=== PATIENT | female | born 2000 | race Caucasian/White ===

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

== ENCOUNTER 2021-01-05 11:28 | Emergency (ER) | payer OTHER, MEDICAID ==
[~2021-01-05] VITALS: Ht 167.6 cm; Wt 70.3 kg
[~2021-01-05 11:28] MED LIST changes: +DEPO-PROVE150 MG/11 IM
[2021-01-05 11:50] LABS: URINE BILIRUBIN NEGATIVE (Negative); URINE BLOOD 1+ (Negative); URINE CLARITY CLEAR; URINE COLOR YELLOW; URINE GLUCOSE-RANDOM NEGATIVE (Negative); URINE KETONES NEGATIVE (Negative); URINE NITRITE-REFLEX NEGATIVE (Negative); URINE PROTEIN NEGATIVE (Negative); URINE SPECIFIC GRAVITY <= 1.005 (1.005-1.030); URINE UROBILINOGEN 0.2 E.U./dl (0.2-1.0)
[2021-01-05 11:51] LABS: URINE LEUKOCYTES-REFLEX 3+ (Negative)
[2021-01-05] MEDS ORDERED: PHENAZOPYRIDIN200 M2 PO (11:53)
[2021-01-05] MEDS ORDERED: CEPHALEXIN500 MG PO ×2 (11:53→11:57)
[2021-01-05] MEDS ORDERED: LOTRIMIN AF12 GM TOP (11:56)
[2021-01-05 11:57] LABS: CASTS None Seen /LPF (None Seen); CRYSTALS None Seen /LPF (None Seen); MUCUS 0-3 Light strn/LPF (None Seen); SQUAMOUS 0-3 Few /LPF (0-3); URINE RBC 3-10 Few /HPF (0-2)
[2021-01-05 12:04] VITALS: BP 128/72
== END 2021-01-05 12:05 | disposition home or self-care (01) ==
LOC: M.ERS 11:28
PROVIDERS: Emergency Medicine Emergency Medical Services
DX: N39.0 Urinary tract infection, site not specified (principal); B35.8 Other dermatophytoses; H65.93 Unspecified nonsuppurative otitis media, bilateral; H00.015 Hordeolum externum left lower eyelid; K21.9 Gastro-esophageal reflux disease without esophagitis

== ENCOUNTER 2021-04-13 09:04 | Emergency (ER) | payer OTHER, MEDICAID ==
[~2021-04-13] VITALS: Ht 167.6 cm; Wt 68.0 kg
[~2021-04-13 09:04] MED LIST changes: +CEPHALEXIN500 MG PO; +LOTRIMIN AF12 GM TOP
[2021-04-13 09:36] LABS: URINE BLOOD 1+ (Negative); URINE CLARITY CLEAR; URINE COLOR YELLOW; URINE GLUCOSE-RANDOM 1+ (Negative); URINE KETONES NEGATIVE (Negative); URINE PROTEIN 2+ (Negative); URINE UROBILINOGEN >= 8.0 E.U./dl (0.2-1.0)
[2021-04-13 09:37] LABS: URINE BILIRUBIN 1+ (Negative); URINE LEUKOCYTES-REFLEX 3+ (Negative); URINE NITRITE-REFLEX POSITIVE (Negative)
[2021-04-13 09:38] LABS: ACETEST (KETONE CONFIRMATORY) Large (Negative); ICTOTEST (BILI CONFIRMATORY) Positive (Negative)
[2021-04-13 09:46] LABS: SQUAMOUS >10 Many /LPF (0-3)
[2021-04-13 09:51] LABS: URINE WBC-REFLEX >25 Many /HPF (0-5)
[2021-04-13 09:52] LABS: URINE RBC 0-2 Rare /HPF (0-2)
[2021-04-13 10:22] VITALS: BP 120/74
[2021-04-13] MEDS ORDERED: MEDROLDOSEPACK PO (11:00)
[2021-04-13] MEDS ORDERED: TRIAMCINOLONE430 GM TOP (11:00)
[2021-04-13] MEDS ORDERED: CEPHALEXIN500 MG PO (11:00)
== END 2021-04-13 10:25 | disposition left against medical advice (07) ==
LOC: M.ERS 09:04
PROVIDERS: Family Medicine
DX: N39.0 Urinary tract infection, site not specified (principal); L30.9 Dermatitis, unspecified; K21.9 Gastro-esophageal reflux disease without esophagitis; Z79.899 Other long term (current) drug therapy